=== PATIENT | male | born 1995 | race American Indian/Alaskan Native ===

== ENCOUNTER 2017-11-10 02:51 | Emergency (ER) | payer BC ==
[2017-11-10 03:10] VITALS: BP 151/78; PULSE 68; RESP 18; TEMP 98; O2SAT 100
[2017-11-10 03:11] VITALS: BMI 23.7
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
[2017-11-10] MEDS ORDERED: TDAP Vaccine 0.5 mL Syr IM ONE (03:54)
[2017-11-10] MEDS ORDERED: Lidocaine 1% Inj (20ml) ONE (04:34)
== END 2017-11-10 05:50 | disposition home or self-care (01) ==
LOC: ED 02:51
DX: S01.511A Laceration without foreign body of lip, initial encounter (principal); S03.2XXA Dislocation of tooth, initial encounter; Y08.89XA Assault by other specified means, initial encounter; Y92.89 Other specified places as the place of occurrence of the external cause; Z23 Encounter for immunization